=== PATIENT | female | born 1985 | race Two or more races ===

== ENCOUNTER → 2019-01-20 | Outpatient (CLI) | payer BC, OTHER ==
[2019-01-20 12:16] LABS: Basophils # (auto) 0.1 uL; Eosinophils # (auto) 0.1 uL; Hemoglobin 15.6 g/dL (12.2-16.2); Lymphocytes # (auto) 1.8 uL; Lymphocytes % (auto) 30.7 % (10.0-50.0); Mean Corpuscular Hemoglobin 30.3 pg (28.0-32.0); Mean Corpuscular Hgb Conc. 33.2 g/dL (32.0-36.0); Mean Corpuscular Volume 91.2 fL (80.0-100.0); Monocytes # (auto) 0.4 uL; Monocytes % (auto) 6.1 % (0.0-12.0); Neutrophils # (auto) 3.6 uL; Neutrophils % (auto) 61.2 % (37.0-80.0); Nucleated Red Blood Cells % 0.3 %; Platelet Count (auto) 306 10^3/uL (140-450); Red Blood Cells 5.16 10^6/uL (4.0-5.20); Red Cell Distribution Width 12.9 % (11.8-14.3); White Blood Cell 5.9 10^3/uL (4.4-10.8)
[2019-01-20 12:20] LABS: Chloride 102 mmol/L (98-107); Potassium 3.6 mmol/L (3.5-5.1); Sodium 135 mmol/L (136-145)
[2019-01-20 12:28] LABS: Free T4 (Free Thyroxine) 1.38 ng/dL (0.89-1.76)
[2019-01-20 12:31] LABS: Alanine Aminotransferase 17 U/L (13-56); Albumin 3.6 g/dL (3.4-5.0); Alkaline Phosphatase 149 U/L (45-117); Anion Gap 7 (5-15); Aspartate Aminotransferase 11 U/L (15-37); BUN/Creatinine Ratio 16.3; Bilirubin, Total 0.5 mg/dL (0.2-1.0); Blood Urea Nitrogen 8 mg/dL (7-18); Calcium 8.6 mg/dL (8.5-10.1); Carbon Dioxide 26 mmol/L (21-32); Cholesterol 298 mg/dL (< 200); GFR African American 188 mL/min; GFR Non-African American 156 mL/min; Glucose 278 mg/dL (74-106); HDL Cholesterol 52 mg/dL (40-59); Total Protein 7.6 g/dL (6.4-8.2); Triglycerides 479 mg/dL (< 150)
[2019-01-20 15:13] LABS: Urine Blood Negative /uL (Negative); Urine Specific Gravity 1.047 (1.001-1.035)
== END | disposition home or self-care (01) ==
LOC: Rad HDHVI 08:03
PROVIDERS: ATTEND Internal Medicine Cardiovascular Disease
DX: K42.9 Umbilical hernia without obstruction or gangrene (principal); R16.0 Hepatomegaly, not elsewhere classified; E03.9 Hypothyroidism, unspecified; E11.9 Type 2 diabetes mellitus without complications; E55.9 Vitamin D deficiency, unspecified; D51.9 Vitamin B12 deficiency anemia, unspecified; N39.0 Urinary tract infection, site not specified
CPT/HCPCS: 36415; 74176; 80053; 80061; 81003; 82306; 82607; 83036; 84439; 84443; 85025; 87086; 93306